=== PATIENT | female | born 1960 | race Caucasian/White ===

== ENCOUNTER 2018-08-21 01:56 | Emergency (ER) | payer OTHER ==
[~2018-08-21] VITALS: Ht 149.9 cm; Wt 121.9 kg
[2018-08-21 02:02] VITALS: Ht 149.9 cm; Wt 121.9 kg
[2018-08-21] MEDS ORDERED: FAMOTIDINE 20 MG INJ IV STA (02:15)
[2018-08-21] MEDS ORDERED: ONDANSETRON 4 MG INJ IV STA (02:15)
[2018-08-21] MEDS ORDERED: SOD CHLORIDE 0.9% 1,000 ML IV STA (02:15)
[2018-08-21] MEDS ORDERED: METOCLOPRAMIDE 10 MG INJ IV ONE (02:30)
[2018-08-21] MEDS ORDERED: ACETAMINOPHEN 500 MG TAB PO STA (03:35)
[2018-08-21] MEDS ORDERED: ERGO500013 PO (04:25)
[2018-08-21] MEDS ORDERED: ROSU10TA55 PO (04:25)
[2018-08-21] MEDS ORDERED: VERA120T77 PO (04:25)
[2018-08-21] MEDS ORDERED: ALBU18HF INHALATION (04:25)
--- NOTE | 2018-08-21 04:53 | ERD ---
ER Documentation Chief Complaint Chief Complaint vomiting/abd pain/headache, had epidural yesterday for back pain HPI This is a 57-year-old female who presents to the emergency room for evaluation of headache, nausea and one episode of vomiting. Patient states that she had an epidural done approximately 12 hours ago for her chronic back pain. She states that when she got home she was having a headache which she localized to the front portion of her head. She states that she laid down and got some rest and when she woke up she had 2 glasses of wine. She states after that her headache became a little bit worse and she vomited twice. She tried to call her primary care physician however they were unavailable and she called 911 and came to the ER for evaluation. The patient denies any chest pain, and, or blurred vision at this time ROS All systems reviewed and are negative except as per history of present illness. Medications Home Meds Reported Medications Ergocalciferol (Vitamin D2) (VITAMIN D2) 50,000 Unit Capsule, 64796 UNIT PO, CAP 08/21/18 Rosuvastatin Calcium* (Crestor*) 10 Mg Tablet, 10 MG PO QHS, #30 TAB 08/21/18 Verapamil Hcl* (Verapamil ER*) 120 Mg Tablet.er, 120 MG PO DAILY, TAB.SA 08/21/18 Albuterol Sulfate* (Ventolin HFA*) 18 Gm Hfa.aer.ad, 2 PUFF INHALATION Q4H, #1 INHALER 08/21/18 Allergies Allergies: Coded Allergies: nitrofurantoin (Verified Allergy, Unknown, vomiting, 08/21/18) PMhx/Soc History of Surgery: Yes (bariatric, bilateral carpel) Anesthesia Reaction: No Hx Neurological Disorder: No Hx Respiratory Disorders: Yes (asthma) Hx Cardiac Disorders: Yes (high cholesterol, HTN) Hx Psychiatric Problems: No Hx Miscellaneous Medical Probl: Yes (umbilical hernia, gallstones) Hx Alcohol Use: Yes (socially) Hx Substance Use: No Hx Tobacco Use: No Smoking Status: Never smoker Physical Exam Vitals Vital Signs Date Temp Pulse Resp B/P (MAP) Pulse Ox O2 O2 Flow FiO2 Time Delivery Rate 08/21/18 98.3 68 18 111/72 96 Room Air 03:04 (85) 08/21/18 99.1 86 18 205/83 96 02:02 (123) Physical Exam INITIAL VITAL SIGNS: Reviewed by me GENERAL: The patient is well developed and appropriate for usual state of heal th in no apparent distress HEENT: Pupils equal, round, and reactive to light. EOMI. There is no scleral icterus. NECK: C-spine is soft and supple, there is no meningismus. There is no cervical lymphadenopathy. LUNGS: Clear to auscultation bilaterally. There are no rales, wheezes or rhonchi. HEART: Regular rate and rhythm, no murmurs, clicks, rubs or gallops. ABDOMEN: Soft, non-tender, non-distended. There are bowel sounds in all four quadrants. No rebound or guarding. EXTREMITIES: There is no peripheral cyanosis or edema. No focal swelling or erythema. NEUROLOGICAL: The patient moves all four extremities with 5/5 strength. Cranial nerves II - XII are intact. Normal gait. Alert and oriented SKIN: There is no apparent rash or petechiae. HEME/LYMPHATIC: There is no evidence of excessive bruising or lymphedema. PSYCHIATRIC: The patient does not appear anxious or depressed. Result Diagram: 08/21/1822708/21/188 Results 24 hrs Laboratory Tests Test 08/21/18 02:28 White Blood Count 13.4 10^3/ul Red Blood Count 5.48 10^6/ul Hemoglobin 13.9 g/dl Hematocrit 43.5 % Mean Corpuscular Volume 79.4 fl Mean Corpuscular Hemoglobin 25.4 pg Mean Corpuscular Hemoglobin Concent 32.0 g/dl Red Cell Distribution Width 14.6 % Platelet Count 438 10^3/UL Mean Platelet Volume 9.3 fl Immature Granulocytes % 0.700 % Neutrophils % 83.8 % Lymphocytes % 10.3 % Monocytes % 4.8 % Eosinophils % 0.0 % Basophils % 0.4 % Nucleated Red Blood Cells % 0.0 /100WBC Immature Granulocytes # 0.090 10^3/ul Neutrophils # 11.2 10^3/ul Lymphocytes # 1.4 10^3/ul Monocytes # 0.6 10^3/ul Eosinophils # 0.0 10^3/ul Basophils # 0.1 10^3/ul Nucleated Red Blood Cells # 0.0 10^3/ul Urine Color YELLOW Urine Clarity SLIGHTLY CLOUDY Urine pH 5.0 Urine Specific Mccormick 1.021 Urine Ketones NEGATIVE mg/dL Urine Nitrite NEGATIVE mg/dL Urine Bilirubin NEGATIVE mg/dL Urine Urobilinogen NEGATIVE mg/dL Urine Leukocyte Esterase NEGATIVE Vanessa/ul Urine Microscopic RBC 1 /HPF Urine Microscopic WBC 0 /HPF Urine Squamous Epithelial Cells FEW /HPF Urine Mucus FEW /HPF Urine Hemoglobin 1+ mg/dL Urine Glucose NEGATIVE mg/dL Urine Total Protein 1+ mg/dl Sodium Level 145 mmol/L Potassium Level 4.1 mmol/L Chloride Level 107 mmol/L Carbon Dioxide Level 24 mmol/L Anion Gap 14 Blood Urea Nitrogen 15 mg/dl Creatinine 0.68 mg/dl Est Glomerular Filtrat Rate mL/min > 60 mL/min Glucose Level 195 mg/dl Calcium Level 9.9 mg/dl Total Bilirubin 0.1 mg/dl Direct Bilirubin 0.00 mg/dl Indirect Bilirubin 0.1 mg/dl Aspartate Amino Transf (AST/SGOT) 21 IU/L Alanine Aminotransferase (ALT/SGPT) 18 IU/L Alkaline Phosphatase 80 IU/L Total Protein 7.8 g/dl Albumin 4.3 g/dl Globulin 3.50 g/dl Albumin/Globulin Ratio 1.22 Lipase 60 U/L Ethyl Alcohol Level < 10.0 mg/dl Current Medications Medications Dose Sig/Mindy Start Time Status Last (Trade) Ordered Route PRN Stop Time Admin Dose Reason Admin Sodium 1,000 ml @ Q1H STAT 08/21/18 DC 08/21/18 Chloride 1,000 mls/hr IV 02:15 02:35 08/21/18 03:14 Ondansetron 4 mg ONCE STAT 08/21/18 DC 08/21/18 HCl (Zofran IV 02:15 02:35 Inj) 08/21/18 02:16 Famotidine 20 mg ONCE STAT 08/21/18 DC 08/21/18 (Pepcid Iv) IV 02:15 02:35 08/21/18 02:16 10 mg ONCE ONCE 08/21/18 DC 08/21/18 Metoclopramid IV 02:30 02:35 e HCl 08/21/18 02:31 (Reglan) 1,000 mg ONCE STAT 08/21/18 DC 08/21/18 Acetaminophen PO 03:35 04:15 (Tylenol 08/21/18 03:36 Tab) Procedures/MDM CT brain without: Punctate focus of high attenuation within the right basal ganglia without surrounding edema. Findings are favored to represent an area of parenchymal mineralization/calcification. However given the clinical history short-term interval follow-up is recommended to exclude the possibility of a small focus of petechial hemorrhage. This 57-year-old female presents the ER for evaluation of headache, nausea and vomiting. Her initial blood pressure was 200 systolic. She had no focal neurological deficits however she was complaining of headache. Patient did have an epidural today. Lab work was obtained and the patient was given Reglan Zofran. After she was given Reglan and Zofran the patient states she was feeling better. CT the brain was ordered and CT does show a small focus of high attenuation in the right basal ganglia which could be a calcification or a small focus of petechial hemorrhage. On reevaluation her blood pressure is 167/78. She states she is feeling better. This could be an overread by radiologist however given her initial blood pressure and presenting symptoms I do feel would be beneficial for this patient to be transferred over to [facility] to be evaluated by a neurologist for possible MRI or repeat CT. the patient is agreeable to plan of care and I have spoken with Dr. Don who agrees with her plan of care. He states the patient can be transferred to [place] and she will be evaluated by a neurologist. He has reviewed previous CAT scans and they do show some areas of calcifications in the right basal ganglia however his CT r ead did mention they were bilateral in this area is unilateral. She has no focal neurological deficits at this time, no headache, no blurred vision, she remains hemodynamically stable and will be transferred. Critical Care: Excluding all billable procedures Time: 38 minutes Treatments/Evaluations: Close monitoring and treatment of unstable vital signs, cardiorespiratory, and neurologic status, while maintaining tight balance of fluid, respiratory, and cardiac interventions. Departure Diagnosis: Primary Impression: Nontraumatic acute hemorrhage of basal ganglia Additional Impressions: Cephalgia Uncontrolled hypertension Condition: FARIDEH Hernandez DO Aug 21, 2018 04:53
[2018-08-21 07:31] VITALS: BP 121/71; PULSE 84; RESP 18
== END 2018-08-21 07:40 | disposition short-term general hospital (02) ==
LOC: E/R 01:56
DX: I61.0 Nontraumatic intracerebral hemorrhage in hemisphere, subcortical (principal); R40.2142 Coma scale, eyes open, spontaneous, at arrival to emergency department; R40.2362 Coma scale, best motor response, obeys commands, at arrival to emergency department; R40.2252 Coma scale, best verbal response, oriented, at arrival to emergency department; I10 Essential (primary) hypertension; J45.909 Unspecified asthma, uncomplicated
CPT/HCPCS: 36415; 70450; 80053; 80307; 81001; 83690; 85025; 96374; 96375; 99291; J2405; J2765; J7030